=== PATIENT | male | born 1960 | race Caucasian/White ===

== ENCOUNTER 2019-06-26 13:05 | Outpatient (CLI) | payer MEDICARE, MEDICAID, SELFPAY ==
--- NOTE | 2019-06-26 13:20 | XR_ITS ---
WS: [id number] Lumbar spine with flexion, extension, and neutral lateral, 06/26/2019 Clinical Data: LOW BACK PAIN Comparison: Lumbar spine, 01/11/2018 Findings: There is an old compression fracture of the L1 vertebral body with loss of greater than 75% of anteri or and central vertebral body height. No subluxation is seen. No disc space narrowing is seen. No abnormal flexion or extension occurs at the level of L1 vertebral body. Osteoarthritic spurring is seen at T12, L1 and L2. XR/XR lumbar spine f/e only [id number] Impression: 1. Compression fracture of the L1 vertebral body. 2. 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 3. No subluxation on flexion or extension. 4. No abnormal flexion or extension occurs at the level of the L1 vertebral bod y.
== END 2019-06-26 13:06 | disposition home or self-care (01) ==
LOC: RADWPI 13:17
PROVIDERS: Family Provider Nurse Practitioner Family; PCP Family Medicine; Visit Provider Nurse Practitioner
DX: M48.56XA Collapsed vertebra, not elsewhere classified, lumbar region, initial encounter for fracture (principal); X58.XXXA Exposure to other specified factors, initial encounter; M47.815 Spondylosis without myelopathy or radiculopathy, thoracolumbar region
CPT/HCPCS: 72120